=== PATIENT | male | born 1980 | race Caucasian/White ===

== ENCOUNTER 2016-03-26 13:06 | Emergency (ER) | payer MEDICAID ==
[2015-05-17 11:05] VITALS: BMI 48.8
[~2016-03-26 13:06] MED LIST: DILANTIN100 MG PO; HYDROCODONE-APA1 TAB PO; XANAX1 MG PO; ZYLOPRIM300 MG PO
== END 2016-03-26 17:45 | disposition left against medical advice (07) ==
LOC: D.ER 13:06
DX: R51 Headache (principal)

== ENCOUNTER 2016-09-09 19:03 | Emergency (ER) | payer MEDICAID ==
[2015-05-17 11:05] VITALS: BMI 48.8
== END 2016-09-09 20:53 | disposition home or self-care (01) ==
LOC: D.ER 19:03
DX: R51 Headache (principal); M54.9 Dorsalgia, unspecified; C92.90 Myeloid leukemia, unspecified, not having achieved remission; I10 Essential (primary) hypertension; D69.6 Thrombocytopenia, unspecified

== ENCOUNTER 2016-11-14 14:03 | Emergency (ER) | payer MEDICAID ==
[2015-05-17 11:05] VITALS: BMI 48.8
== END 2016-11-14 16:53 | disposition home or self-care (01) ==
LOC: D.ER 14:03
DX: K04.7 Periapical abscess without sinus (principal); K08.89 Other specified disorders of teeth and supporting structures; I10 Essential (primary) hypertension

== ENCOUNTER 2017-03-15 14:31 | Emergency (ER) | payer MEDICAID ==
[2015-05-17 11:05] VITALS: BMI 48.8
== END 2017-03-15 15:55 | disposition home or self-care (01) ==
LOC: D.ER 14:31
DX: F41.9 Anxiety disorder, unspecified (principal); R51 Headache; I10 Essential (primary) hypertension

== ENCOUNTER 2017-04-14 10:05 | Observation (INO) | payer MEDICAID ==
[2017-04-14 10:45] LABS: HEMATOCRIT 46.2 % (42.0-54.0); HEMOGLOBIN 15.3 g/dL (13.5-17.5); MCH 30.8 pg (26.0-34.0); MCHC 33.1 g/dL (31.0-37.0); MCV 93.1 fL (80.0-100.0); RBC 4.96 10x6/uL (4.20-6.10); RDW 14.3 % (11.5-14.5); WBC 26.9 10x3/uL (4.8-10.8)
[2017-04-14 10:46] LABS: MEAN PLATELET VOLUME 9.3 fL (7.4-10.4); PLATELET COUNT 526 10x3/uL (130-400)
[2017-04-14 10:53] LABS: ALBUMIN 3.7 g/dL (3.4-5.0); ANION GAP 8.7 mmol/L (8-16); BILIRUBIN - TOTAL 0.51 mg/dL (0.2-1.3); CALCIUM 8.9 mg/dL (8.5-10.1); CARBON DIOXIDE 30.5 mmol/L (21.0-32.0); CREATININE - SERUM 1.2 mg/dL (0.6-1.3); MAGNESIUM - SERUM 1.7 mg/dL (1.8-2.4); POTASSIUM - SERUM 4.2 mmol/L (3.5-5.1); PROTEIN - SERUM 7.4 g/dL (6.4-8.2)
[2017-04-14 11:04] LABS: BASOPHILS 2 % (0-2); EOSINOPHILS 3 % (0-7); LYMPHOCYTES 15 % (15-50); MONOCYTES 2 % (2-11); NEUTROPHILS 72 % (40-80); PLATELET ESTIMATE NORMAL
[2017-04-14 11:42] LABS: APPEARANCE CLEAR (CLEAR); BILIRUBIN NEGATIVE (NEGATIVE); COLOR YELLOW (YELLOW); GLUCOSE 50 mg/dL (NEGATIVE); KETONE NEGATIVE (NEGATIVE); NITRITE NEGATIVE (NEGATIVE); PROTEIN NEGATIVE (NEGATIVE); UROBILINOGEN NORMAL (NORMAL)
[2017-04-14 11:46] LABS: UDS - AMPHET NEGATIVE QUAL (NEGATIVE); UDS - BARB POSITIVE QUAL (NEGATIVE); UDS - BENZO POSITIVE QUAL (NEGATIVE); UDS - COCAINE NEGATIVE QUAL (NEGATIVE); UDS - OPIATE NEGATIVE QUAL (NEGATIVE); UDS - PCP NEGATIVE QUAL (NEGATIVE); UDS - THC POSITIVE QUAL (NEGATIVE)
[2017-04-14] MEDS ORDERED: GLEEVEC100 MG PO (15:27)
[2017-04-14] MEDS ORDERED: EFFEXOR25 MG PO (15:28)
[2017-04-14] MEDS ORDERED: TRAZODONE HCL150 MG PO (15:28)
[2017-04-14 18:20] VITALS: BP 161/93; BMI 46.9
[2017-04-14 21:55] VITALS: BP 96/61
[2017-04-15 00:40] VITALS: BP 137/62
[2017-04-15 04:27] LABS: BASOPHILS 1.8 % (0-2); EOSINOPHILS 1.6 % (0-7); HEMATOCRIT 43.5 % (42.0-54.0); HEMOGLOBIN 14.2 g/dL (13.5-17.5); IMMATURE GRANULOCYTES 9.4 % (0-5); LYMPHOCYTES 11.3 % (15-50); MCH 30.3 pg (26.0-34.0); MCHC 32.6 g/dL (31.0-37.0); MCV 92.9 fL (80.0-100.0); MEAN PLATELET VOLUME 9.2 fL (7.4-10.4); MONOCYTES 3.9 % (2-11); PLATELET COUNT 397 10x3/uL (130-400); RBC 4.68 10x6/uL (4.20-6.10); RDW 14.4 % (11.5-14.5); WBC 20.5 10x3/uL (4.8-10.8)
[2017-04-15 04:50] VITALS: BP 130/76
[2017-04-15 04:57] LABS: ALKALINE PHOSPHATASE 59 U/L (46-116); ALT (SGPT) 30 U/L (10-68); CALC OSMOLALITY 283 mosm/kg (275-300); CALCIUM 7.6 mg/dL (8.5-10.1); CARBON DIOXIDE 27.4 mmol/L (21.0-32.0); CHLORIDE - SERUM 107 mmol/L (98-107); CREATININE - SERUM 0.9 mg/dL (0.6-1.3); POTASSIUM - SERUM 3.6 mmol/L (3.5-5.1); SODIUM 142 mmol/L (136-145); UREA NITROGEN 10 mg/dL (7-18); eGFR NON AFRICAN AMERICAN > 90 mL/min (90-120)
[2017-04-15 05:04] LABS: GLUCOSE 130 mg/dL (74-106)
[2017-04-15 08:19] VITALS: BP 150/87
[2017-04-15 12:54] VITALS: BP 127/84
[2017-04-15 16:00] VITALS: BP 149/86
[2017-04-15 20:00] VITALS: BP 108/65
[2017-04-16 04:00] VITALS: BP 135/84
[2017-04-16 05:27] LABS: BASOPHILS 2.3 % (0-2); EOSINOPHILS 2.4 % (0-7); HEMATOCRIT 44.7 % (42.0-54.0); HEMOGLOBIN 14.6 g/dL (13.5-17.5); IMMATURE GRANULOCYTES 10.5 % (0-5); MCH 30.3 pg (26.0-34.0); MCHC 32.7 g/dL (31.0-37.0); MCV 92.7 fL (80.0-100.0); MEAN PLATELET VOLUME 9.7 fL (7.4-10.4); MONOCYTES 3.3 % (2-11); NEUTROPHILS 68.5 % (40-80); PLATELET COUNT 448 10x3/uL (130-400); RBC 4.82 10x6/uL (4.20-6.10); RDW 14.3 % (11.5-14.5); WBC 19.4 10x3/uL (4.8-10.8)
[2017-04-16 05:53] LABS: ALKALINE PHOSPHATASE 63 U/L (46-116); ALT (SGPT) 33 U/L (10-68); CALC OSMOLALITY 282 mosm/kg (275-300); CALCIUM 7.9 mg/dL (8.5-10.1); CARBON DIOXIDE 26.8 mmol/L (21.0-32.0); CHLORIDE - SERUM 107 mmol/L (98-107); GLUCOSE 114 mg/dL (74-106); POTASSIUM - SERUM 3.7 mmol/L (3.5-5.1); PROTEIN - SERUM 6.1 g/dL (6.4-8.2); SODIUM 142 mmol/L (136-145); UREA NITROGEN 9 mg/dL (7-18); eGFR NON AFRICAN AMERICAN 90 mL/min (90-120)
[2017-04-16] MEDS ORDERED: DILANTIN100 MG PO (08:07)
[2017-04-16] MEDS ORDERED: MAG-OX 400 MG400 MG PO (08:08)
[2017-04-16] MEDS ORDERED: GLUCOPHAGE500 MG PO (08:09)
[2017-04-16 08:15] VITALS: BP 134/88
== END 2017-04-16 09:49 | disposition home or self-care (01) ==
LOC: D.ER 10:05 → OBSVTIME 14:40 → D.EDHOLD 14:40 → D.MS 14:40
PROVIDERS: Family Medicine; Legal Medicine
DX: C92.10 Chronic myeloid leukemia, BCR/ABL-positive, not having achieved remission (principal); E66.01 Morbid (severe) obesity due to excess calories; Z68.42 Body mass index [BMI] 45.0-49.9, adult; R51 Headache; E83.42 Hypomagnesemia; K21.9 Gastro-esophageal reflux disease without esophagitis; J98.11 Atelectasis

== ENCOUNTER 2017-07-02 10:06 | Emergency (ER) | payer MEDICAID ==
[~2017-07-02 10:06] MED LIST changes: +EFFEXOR25 MG PO; +GLEEVEC100 MG PO; +GLUCOPHAGE500 MG PO; +MAG-OX 400 MG400 MG PO; +TRAZODONE HCL150 MG PO
[2017-07-02 15:42] LABS: BASOPHILS 2.6 % (0-2); EOSINOPHILS 0.5 % (0-7); HEMATOCRIT 48.6 % (42.0-54.0); HEMOGLOBIN 16.8 g/dL (13.5-17.5); IMMATURE GRANULOCYTES 2.3 % (0-5); LYMPHOCYTES 11.9 % (15-50); MCH 31.8 pg (26.0-34.0); MCHC 34.6 g/dL (31.0-37.0); MEAN PLATELET VOLUME 9.2 fL (7.4-10.4); MONOCYTES 4.3 % (2-11); NEUTROPHILS 78.4 % (40-80); RBC 5.28 10x6/uL (4.20-6.10); RDW 14.1 % (11.5-14.5); WBC 14.7 10x3/uL (4.8-10.8)
[2017-07-02 15:44] LABS: PLATELET COUNT 643 10x3/uL (130-400)
[2017-07-02 15:51] LABS: INR 1.1 (0.85-1.17); PROTIME 13.8 SECONDS (11.6-15.0)
[2017-07-02 15:55] LABS: ALBUMIN 4.1 g/dL (3.4-5.0); ALKALINE PHOSPHATASE 90 U/L (46-116); ALT (SGPT) 70 U/L (10-68); BILIRUBIN - TOTAL 0.76 mg/dL (0.2-1.3); CALC OSMOLALITY 273 mosm/kg (275-300); CALCIUM 9.2 mg/dL (8.5-10.1); CARBON DIOXIDE 24.5 mmol/L (21.0-32.0); CHLORIDE - SERUM 101 mmol/L (98-107); CREATININE - SERUM 1.2 mg/dL (0.6-1.3); GLUCOSE 151 mg/dL (74-106); POTASSIUM - SERUM 3.9 mmol/L (3.5-5.1); PROTEIN - SERUM 7.5 g/dL (6.4-8.2); SODIUM 136 mmol/L (136-145); UREA NITROGEN 11 mg/dL (7-18); eGFR NON AFRICAN AMERICAN 73 mL/min (90-120)
[2017-07-02 15:59] LABS: CREATINE KINASE 83 UL (21-232); LIPASE 82 U/L (73-393); MAGNESIUM - SERUM 1.8 mg/dL (1.8-2.4); TROPONIN-I < 0.017 ng/mL (0.000-0.060)
== END 2017-07-02 18:18 | disposition home or self-care (01) ==
LOC: D.ER 10:06
PROVIDERS: Nurse Practitioner Family
DX: R51 Headache (principal); R11.0 Nausea; F41.9 Anxiety disorder, unspecified; T42.0X6A Underdosing of hydantoin derivatives, initial encounter; Z91.138 Patient's unintentional underdosing of medication regimen for other reason; Y92.019 Unspecified place in single-family (private) house as the place of occurrence of the external cause